=== PATIENT | male | born 1950 | race Caucasian/White ===

== ENCOUNTER 2021-04-10 10:14 | Emergency (ER) | payer MEDICARE, SELFPAY ==
--- NOTE | ~2021-04-10 | XR_ITS ---
EXAMINATION: XR chest 2V EXAM DATE: 04/10/2021 10:56 INDICATION: Cough 1.5 weeks. TECHNIQUE: Frontal and lateral projections of the chest obtained and reviewed. There are no prior st udies for comparison. FINDINGS: There is bulging right-sided aortic outlet contour, could be tortuosity but aneurysm not ex cludable. A follow-up chest CT should be considered (noncontrast would be adequate for evaluating rosalinda iber of aorta). No confluent consolidation, pneumothorax or pleural effusion suspected. Heart is normal in size. Ther e are old left rib fractures. IMPRESSION: 1. Ascending aortic tortuosity versus aneurysm. Consider follow-up noncontrast chest CT. 2. No acute cardiopulmonary findings. Reviewed, dictated and finalized at location A.
[2021-04-10 10:31] VITALS: BP 146/77; PULSE 88; RESP 16; TEMP 36.8; O2SAT 98
--- NOTE | 2021-04-10 10:32 | ED.URI ---
HPI - URI/Sore Throat General Chief Complaint: Upper Respiratory Infection Stated Complaint: cough Time Seen by Provider: 04/10/21 10:33 Source: patient and RN notes reviewed Mode of arrival: ambulatory Limitations: no limitations History of Present Illness HPI Narrative: 71-year-old male presents to the [facility] with complaints of a cough for the last 10 days. Patient states that for the last 2 or 3 days it has become productive prior to that it was very dry. Denies abdominal pain or chest pain. Denies fevers. No nausea vomiting or diarrhea. No extremity edema. Related Data Home Medications Medication Instructions Recorded Confirmed buspirone 10 mg PO TID 04/10/21 04/10/21 divalproex 500 mg PO Q12H 04/10/21 04/10/21 doxazosin 8 mg PO DAILY 04/10/21 04/10/21 metformin 1,000 mg PO BID 04/10/21 04/10/21 oxybutynin chloride 10 mg PO DAILY 04/10/21 04/10/21 pantoprazole 40 mg PO QAM 04/10/21 04/10/21 quetiapine [Seroquel] 300 mg PO HS 04/10/21 04/10/21 sertraline 100 mg PO DAILY 04/10/21 04/10/21 simvastatin 20 mg PO DAILY 04/10/21 04/10/21 timolol 1 drp EACH EYE Q12H 04/10/21 04/10/21 Allergies Allergy/AdvReac Type Severity Reaction Status Date / Time Penicillins Allergy Intermediate rash Verified 04/10/21 10:40 Review of Systems Review of Systems: All systems reviewed & are unremarkable except as noted in HPI and below Constitutional: Constitutional: Reports no additional constitutional complaints, Denies chills and Denies fever(s) Eyes: Eyes: Reports no additional eye complaints and Denies change in vision ENT: Reports system reviewed and no additional complaints, except as documented, Denies vertigo, Denies dizziness, Denies nasal congestion and Denies sore throat Cardiovascular: Cardiovascular: Reports no additional cardiovascular complaints, Denies chest pain, Denies rapid heart rate and Denies radiating jaw, neck or arm pain Respiratory: Respiratory: Reports as per HPI, Denies chest congestion, Reports cough, Denies dyspnea and Denies wheezing Gastrointestinal: Gastrointestinal: Reports no additional gastrointestinal complaints, Denies abdominal pain, Denies bloating, Denies heartburn, Denies diarrhea, Denies nausea and Denies vomiting Musculoskeletal: Musculoskeletal: Reports no additional musculoskeletal complaints Integumentary/Breasts: Skin/Breast: Reports system reviewed and no additional complaints, except as docu Neurologic: Reports system reviewed and no additional complaints, except as documented Psychiatric: Psychiatric: Reports no additional psychiatric complaints Allergic/Immunologic: Allergic/Immunologic: Reports no additional allergic/immunologic complaints [facility] Past Medical History Medical History (Updated 04/10/21 @ 11:18 by Sue Hester) Depression Diabetes GERD (gastroesophageal reflux disease) High cholesterol Comments At the time of my signature, I reviewed and agree with the nursing past medical, surgical, social, and family history. There is no relevant family history pertinent to the patient complaint. Exam Const: General: healthy appearing, no acute distress and alert Nutritional Appearance: well nourished Orientation/consciousness: patient oriented x3 Limitations: no limitations HENMT: Head: normal to inspection Ears: external ears normal, TM's normal bilaterally and EAC's normal Eyes: Conjunctivae: conjunctivae normal Pupils: Equal, round and reactive pupils present Neck: Neck: normal visual inspection and no lymphadenopathy Chest: Chest palpation & inspection: normal inspection of the chest Resp: Effort & Inspection: normal respiratory effort Auscultation: diminished lung sounds bilateral in the lower lung escobar Cardio: Rate: regular rate Rhythm: regular rhythm GI: GI Palp: Yes Soft to palpation and No Tenderness to palpation present (GI) Back/Spine/Pelvis: Back: no CVA tenderness Skin: General skin exam: normal color Rashes: rash noted
== END 2021-04-10 11:27 | disposition home or self-care (01) ==
PROVIDERS: Emergency Provider Nurse Practitioner; PCP Family Medicine
DX: J40 Bronchitis, not specified as acute or chronic (principal); F32.9 Major depressive disorder, single episode, unspecified; E11.9 Type 2 diabetes mellitus without complications; G21.9 Secondary parkinsonism, unspecified; E78.00 Pure hypercholesterolemia, unspecified
CPT/HCPCS: 71046; 99213; G0463

== ENCOUNTER 2021-12-22 07:59 | Outpatient (CLI) | payer MEDICARE, SELFPAY | END 2021-12-22 08:00 | disposition home or self-care (01) | LOC: ANHAUDIO 08:03 | PROVIDERS: PCP Family Medicine; Visit Provider Family Medicine | DX: R42 Dizziness and giddiness (principal) | CPT/HCPCS: 92537; 92540; 92546; 92567 ==

== ENCOUNTER 2022-08-09 10:52 | Outpatient (CLI) | payer MEDICARE, SELFPAY ==
--- NOTE | 2022-09-06 15:29 | WPDSLEEPSTUD ---
Sleep Study Date of Study: 08/09/22 Ordering Provider: JOYCE Ramirez Interpreting Physician: Katherine Wilde DO Sleep Study Type: Split Polysomnogram Height: 1.57 m Weight: 79.379 kg Body Mass Index: 32.0 Neck Circumference (inches): 16 [place]: 4 Reason for Sleep Study Insomnia Sleep History The patient is a 72-year-old male with depression, diabetes, GERD, hyperlipidemia, nocturia, seasonal allergies, history of partial left lung removal and history of tobacco use that had a sleep study ordered by the Pulmonary group for evaluation of insomnia. The patient denies awakening from sleep short of breath. He denies awakening at night with heartburn, belching or cough. He rarely snores loud enough that others complain. He occasionally has trouble sleeping when he has a cold. He denies waking up gasping for air throughout the night. He denies having breathing problems at night observed by himself or others. He denies sweating excessively at night. He denies having heart palpitations or irregular heartbeats during the night. He occasionally falls asleep during the day but never while driving. He denies sleep paralysis, cataplexy and hypnagogic / hypnopompic hallucinations. He denies having trouble at school or work due to sleepiness. He denies feeling afraid of going to sleep. He denies having nightmares and rarely remembers his dreams. He denies having thoughts racing through his mind. He denies feeling sad, depressed or anxious. He denies having muscular tension. He denies noticing parts of his body jerk. He denies kicking during the night. He denies having crawling and aching feelings in his legs as well as leg pain during the night. He denies grinding his teeth during sleep awakening with morning jaw pain. He denies being bothered by pain during the day and denies being awakened by pain during the night. He denies waking up feeling stiff in the morning. He denies waking up with sore or achy muscles. He denies waking up with pain in the neck, spine or other joints. He goes to bed at 10:00 p.m. on both weekdays and weekends. It takes him 15-20 minutes to fall asleep. He wakes up 3 times throughout the night to urinate. He wakes up at 8:30 a.m. on weekdays and at 8:00 a.m. on the weekends. He typically gets 8-9 hours of sleep per night. He does not stay in bed after waking up in the morning. He currently lives with his . He does not consume any caffeinated beverages within 2 hours of bedtime. He does not engage in physical exercise before bedtime. He will watch television before falling asleep. He will take naps in the afternoon or the evening and they are refreshing. He will drink caffeinated Coca Cola throughout the day. He quit smoking cigarettes 25 years ago. He denies alcohol and recreational drug use. [facility] Past Medical History Medical History Depression Diabetes GERD (gastroesophageal reflux disease) High cholesterol Surgical History Surgical History History of lung surgery Family History Family History Father Heart disease Sibling Cancer Sibling Cancer Social History Social History Social History: Former smoker up to 2ppd x 33 years, quit smoking in 1995. He used chewing tobacco in the past but quit this also. He quit drinking alcohol in 1995 as well. Denies marijuana or illicit substance use. 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 He lives at home with his , Snow. Smoking packs per day: 2 Smoking cigarettes per day: 40.0 Years smoked: 33 Smoking pack-years: 66.00 Smoking status: Former smoker Smoking end date: 09/26/95 Medications Home Medications Medication Instructions Recorded Confirmed Type azithromycin 250 m
[2022-09-06 16:13] VITALS: BMI 32.0
== END 2022-08-10 07:15 | disposition home or self-care (01) ==
LOC: ANHCSM 10:56
PROVIDERS: PCP Nurse Practitioner Psychiatric/Mental Health; Visit Provider Physician Assistant
DX: G47.10 Hypersomnia, unspecified (principal); G47.33 Obstructive sleep apnea (adult) (pediatric)
CPT/HCPCS: 95811

== ENCOUNTER 2023-12-17 09:13 | Outpatient (CLI) | payer MEDICARE, SELFPAY | END 2023-12-17 09:14 | disposition home or self-care (01) | PROVIDERS: PCP Nurse Practitioner Psychiatric/Mental Health | DX: F30.8 Other manic episodes (principal) | CPT/HCPCS: 36415; 80164; 80165 ==